=== PATIENT | female | born 1965 | race Caucasian/White ===

== ENCOUNTER 2020-06-01 09:57 | Outpatient (REF) | payer OTHER, SELFPAY | END 2020-06-01 09:58 | disposition home or self-care (01) | LOC: HO.LAB 09:57 | PROVIDERS: Visit Provider Internal Medicine | DX: Z20.828 Contact with and (suspected) exposure to other viral communicable diseases (principal) | CPT/HCPCS: C9803; U0003 ==

== ENCOUNTER 2021-03-07 07:13 | Outpatient (REF) | payer OTHER, SELFPAY ==
[2021-03-07 11:16] LABS: MANUAL DIFF FLAG NO
[2021-03-07 11:29] LABS: Basophils Percent Auto 0.7 % (0-2); Eosinophils Absolute Auto 0.3 X10*3/uL (0.0-0.4); Hematocrit 41.2 % (37-47); Hemoglobin 13.7 g/dl (12.0-16.0); Imm Gran Abs Auto 0.01 X10*3/uL (0.00-0.03); Imm Gran Pct Auto 0.2 % (0.0-0.4); Lymphocytes Absolute Auto 2.5 X10*3/uL (1.2-4.9); Lymphocytes Percent Auto 43.3 % (20-40); Mean Corpuscular HGB Conc 33.3 g/dl (31.0-35.0); Mean Corpuscular Hemoglobin 30.5 pg (27.0-33.0); Mean Corpuscular Volume 91.8 fL (80-98); Mean Platelet Volume 10.4 fL (9.4-12.3); Monocytes Absolute Auto 0.5 X10*3/uL (0.1-1.2); Monocytes Percent Auto 8.9 % (2-11); Neutrophils Absolute Auto 2.3 X10*3/uL (2.0-8.3); Neutrophils Percent Auto 40.9 % (45-73); Platelet Count 286 X10*3/uL (160-400); Red Blood Count 4.49 X10*6/uL (4.20-5.50); Red Cell Distribution Width 12.5 % (11.0-16.0); White Blood Count 5.7 X10*3/uL (4.8-10.8)
[2021-03-07 12:19] LABS: Thyroid Stimulating Hormone 1.46 uIU/mL (0.32-4.0); Vitamin D 25-OH Total 20.7 ng/mL (>30)
[2021-03-07 12:48] LABS: Alanine Aminotransferase 11 U/L (0-31); Alkaline Phosphatase 82 U/L (39-117); Anion Gap 9 (12-20); Aspartate Amino Transferase 11 U/L (5-31); Bilirubin Total 0.8 mg/dL (0.0-1.0); Blood Urea Nitrogen 11 mg/dL (9-16); Calcium 9.2 mg/dL (8.4-10.2); Carbon Dioxide 27 mmol/L (22-29); Chloride 108 mmol/L (96-108); Cholesterol 189 mg/dL; Estimated Glomerular Filt Rate > 60; Glucose Fasting 95 mg/dL (60-99); HDL Cholesterol 73 mg/dL; LDL Cholesterol Calculated 109 mg/dl; Potassium 4.4 mmol/L (3.3-5.1); Sodium 140 mmol/L (135-145); Total Protein 6.2 g/dL (6.5-8.0); Triglycerides 39 mg/dL
[2021-03-08 18:37] LABS: Follicle Stimulating Hormone 90.8 mIU/mL; Lutenizing Hormone 33.2 mIU/mL
== END 2021-03-07 07:14 | disposition home or self-care (01) ==
LOC: HO.WFDLDS 07:13
PROVIDERS: PCP Internal Medicine; Visit Provider Internal Medicine
DX: Z00.00 Encounter for general adult medical examination without abnormal findings (principal); N91.2 Amenorrhea, unspecified
CPT/HCPCS: 36415; 80053; 80061; 82306; 83001; 83002; 84443; 85025

== ENCOUNTER 2021-05-06 11:46 | Outpatient (REF) | payer OTHER, SELFPAY ==
[2021-05-06 15:04] LABS: Influenza A PCR NEGATIVE (Negative); Influenza B PCR NEGATIVE (Negative); Resp Syncy Virus RNA Qual PCR NEGATIVE (Negative); SARS COV2 PCR INHOUSE NEGATIVE (Negative)
== END 2021-05-06 11:47 | disposition home or self-care (01) ==
LOC: HO.LAB 11:46
PROVIDERS: Visit Provider Family Medicine
DX: Z20.822 Contact with and (suspected) exposure to COVID-19 (principal); J02.9 Acute pharyngitis, unspecified
CPT/HCPCS: 0241U; 36415

== ENCOUNTER 2021-08-05 07:34 | Outpatient (REF) | payer OTHER, SELFPAY ==
--- NOTE | ~2021-08-05 | XR_ITS ---
EXAMINATION: XR WRIST, LEFT CLINICAL INFORMATION: Pain in left wrist. COMPARISON: None. TECHNIQUE: PA, lateral, and oblique views of the left wrist. FINDINGS: Hypertrophic changes distal radius. No acute fracture visualized. There is posterolateral displacement in relation to radius and ulnocarpal joint space. There is negative ulnar variance. There is mild dorsal wrist soft tissue swelling. XR/XR wrist LT min 3V IMPRESSION: Mild dorsal subluxation of distal ulnar in relation to ulnocarpal joint space. No fracture seen. There is mild hypertrophic changes or deformity of distal radius likely old injury.
== END 2021-08-05 07:35 | disposition home or self-care (01) ==
LOC: HO.LAB 07:34
PROVIDERS: PCP Internal Medicine; Visit Provider Internal Medicine
DX: M25.532 Pain in left wrist (principal)
CPT/HCPCS: 73110; 81162

== ENCOUNTER 2025-03-22 06:32 | Outpatient (REF) | payer BC, SELFPAY ==
--- OUTSIDE RECORDS SUMMARY | 2025-03-22 06:38 | XMS_ITS | Data Portability ---
Author Organization [facility], Telehealth Patient Home Address [address] [place] [address] Assessment No assessment recorded. Plan of Treatment Reminders Order Date Submit Date Provider Last Modified By Organization Details Last Modified Time Details Appointments ANNUAL EXAM 2025 03:45P M DR BATES Not available Not available Not available Lab CMP, serum or plasma 2024 025 [facility], [address] [place] [address], [id number], 03/02/2025 16:25:40 CBC w/ auto diff 2024 025 [facility], [address] [place] [address], [place], [address], 03/02/2025 16:25:40 lipid panel, blood 2024 025 [facility], [address] [place] [address], [id number], 03/02/2025 16:25:40 hemoglobi n A1c, QN, blood 2024 025 [facility], [address] [place] [address], [address], 03/02/2025 16:25:40 Referral None recorded. Procedures None recorded. Surgeries None recorded. Imaging CT, abdomen + pelvis, w/o contrast 2023 024 [email or web address] 10 [facility], [address] [place] [address] [place], [address], 11/26/2023 09:48:25 Medication Orders alendrona te 35 mg tablet 2024 025 [facility] [place], [address] [place], [address], 03/03/2025 12:09:17 erythromy caron 5 mg/gram (0.5 %) eye ointment 2024 025 [facility] [place], [address] [place], [address], 03/03/2025 12:09:17 citalopra m 10 mg tablet 2024 025 [facility] [place], [address] [place], [address], 03/03/2025 12:09:16 Patient TargetsNo targets recorded. Patient InstructionsNo instructions recorded. Reason for Referral None Reported. Results Created Date Observation Date Name Description Value Unit Range Abnormal Flag Note LastModifiedBy Organization Detail LastModifiedTime 11/30/19 24 11/29/2023 CT, abdom en + pelvi s, w/o contr ast No observ ation record ed. [facility] - Radiology [address] [place], [address], 11/30/2023 15:26:11 Result Notes None recorded. Problems Name Problem SNOMED Code Status Onset Date Resolution Date Notes Provider Name and Address Organization Details Recorded Time Allergic rhinitis 67411468 Active 2020 Not Available [facility] 3 17:25:12 Posterio r calcanea l exostosi s 626581185 Active 2020 [employer] Not Available [facility] 3 17:25:12 Menopaus al flushing 714481689 Active 2020 Not Available [facility] 3 17:25:12 Sprain of lateral collater al ligament of knee 63894049 Active 2020 Not Available [facility] 3 17:25:12 Inflamma tion of cervix 28066232 Active 2020 Not Available [facility] 3 17:25:12 Anxiety 87204699 Active 2020 Not Available [facility] 3 17:25:12 Lipoma of lower leg 944792912 Active 2021 Not Available [facility] 3 17:25:12 Overweig ht 733897404 Active 2021 Not Available [facility] 3 17:25:12 Mammogra phic mass of left breast 81023136292 048911 Active 2022 Not Available [facility] 3 17:25:12 Pain of left shoulder joint 07564565029 217031 Active 2022 HILDA AGUILAR [address] [place], [address], [facility] 3 15:52:47 Osteopor osis 02225377 Active 2022 HILDA AGUILAR [address] [place], [address], [facility] 3 16:09:52 Left flank pain 900534471 Active 2023 HILDA AGUILAR [address] [place], [address], [facility] 4 15:48:46 Kidney stone 04813185 Active 2023 HILDA AGUILAR [address] [place], [address], [facility] 4 15:26:23 Constipa tion 75658775 Active 2023 HILDA AGULIAR [address] [place], [address], [facility] 4 16:33:55 Abdomina l pain 29694947 Active 2023 HILDA AGUILAR [address] [facility] [place], [address], [facility] 4 16:36:57 Tight chest 03136945 Active 2024 HILDA AGUILAR [address] [place], [address], [facility] 5 15:26:45 Hordeolu m externum of upper eyelid of left eye 56092638106 9102 Active 2024 HILDA AGUILAR [address] [place], [address], [facility] 5 16:07:53 Mild major depressi on, single episode 58977132 Active 2024 HILDA AGUILAR [address] [place], [address], [facility] 5 16:09:59 Problem Notes None recorded. Procedures Surgical History Date Name Laterality Status Provider Name and Address Organization Details Recorded Time Breast Biopsy completed Dana Ernst [facility] 01/22/2021 08:22:44 cryosurgery of lesion of cervix completed Dana [facility] 01/22/2021 08:22:55 biopsy of skin completed Dana [facility] 01/22/2021 08:23:16 Imaging Results None recorded. Procedure Notes None recorded. Medical Equipment None Reported. Allergies Allergen ID Allergen Name Allergen Category Reaction Reaction Severity Criticality Documentation Date Start Date Code Code System Note Provider Name and Address Organization Details Recorded Time 4655 Bactrim medicatio n Not available Not available Not available 01/22/2021 67502 9 RxNorm Dana angulo [facility] 08:18:12 4656 Substance with sulfonami de structure and antibacte rial mechanism of action (substanc e) medicatio n Not available Not available Not available 01/22/2021 01720 8003 SNOMED Dana angulo [facility] 08:18:18 4657 bee pollen environme nt,medica tion Not available Not available Not available 01/22/2021 97258 [address] - [facility] 1 08:18:28 Medications Name Sig Start Date Stop Date Status Note LastModified by Organization Details LastModified Time amoxicilli n 500 mg capsule TAKE 1 CAPSULE by mouth 3 TIMES DAILY UNTIL GONE. 04/14 completed Not Available Not Available Not Available triazolam 0.25 mg tablet TAKE 1 tablet by mouth 1 HOUR BEFORE APPOINTM ENT 04/14 completed Not Available Not Available Not Available azithromyc in 250 mg tablet TAKE 2 TABLETS BY MOUTH TODAY THEN TAKE 1 TABLET DAILY FOR THE NEXT 4 DAYS 09/09 completed Not Available Not Available Not Available ibuprofen 800 mg tablet TAKE 1 TABLET by mouth EVERY 6 HOURS NEEDED. WITH food 04/14 completed Not Available Not Available Not Available citalopram 10 mg tablet TAKE 1 TABLET BY MOUTH ONCE every DAY active Not Available Not Available No t Available alendronat e 35 mg tablet TAKE 1 TABLET BY MOUTH ONCE A WEEK WITH 6-8OZ OF WATER AT LEAST 30 MIN BEFORE FIRST FOOD OR ANY MED DO NOT LIE DOWN FOR 30 MIN active Not Available Not Available No t Available lorazepam 0.5 mg tablet TAKE 1 TABLET BY MOUTH THREE TIMES DAILY NEEDED FOR 30 DAYS active if needed Not Available Not Available Not Available erythromyc in 5 mg/gram (0.5 %) eye ointment APPLY 1 CM RIBBON INTO THE LOWER CONJUNCT IVAL SAC(S) IN THE AFFECTED EYE(S) BY OPHTHALM IC ROUTE 3 TIMES PER DAY active Not Available Not Available No t Available chlorhexid ine gluconate 0.12 % mouthwash RINSE MOUTH WITH 15ML (1 CAPFUL) FOR 30 SECONDS AM AND PM AFTER TOOTHBRU SHING. EXPECTOR ATE AFTER RINSING, DO NOT SWALLOW 04/14 completed Not Available Not Available Not Available Virtussin AC 10 mg-100 mg/5 mL oral liquid Take 10 mL every 4 hours by oral route for 7 days. 09/09 completed Not Available Not Available Not Available Vitals Date Recorded Body height Body mass index (BMI) Body weight Heart rate Oxygen saturation Oxygen saturation in Arterial blood by Pulse oximetry Systolic And Diastolic Provider Name and Address Organization Details Last Updated DateTime 5 139.7 cm 35.5 kg/m2 21746.2 g 63 /min 97 % 97 % 118/74 mm[Hg] Rafaela Vogel [facility] 5 09:26:21 Date Recorded Body height Body mass index (BMI) Body weight Heart rate Oxygen saturation Oxygen saturation in Arterial blood by Pulse oximetry Systolic And Diastolic Provider Name and Address Organization Details Last Updated DateTime 4 139.7 cm 35.1 kg/m2 63640.4 5 g 67 /min 97 % 97 % 128/70 mm[Hg] HILDA AGUILAR [address] [place], [address] [place] [address] Internal [facility] 4 15:21:14 Date Recorded Body height Body mass index (BMI) Body weight Heart rate Oxygen saturation Oxygen saturation in Arterial blood by Pulse oximetry Systolic And Diastolic Provider Name and Address Organization Details Last Updated DateTime 5 139.7 cm 34.9 kg/m2 68400.8 6 g 60 /min 98 % 98 % 120/70 mm[Hg] Jeane Shrestha [facility] 5 15:52:54 Date Recorded Body height Body mass index (BMI) Body weight Heart rate Oxygen saturation Oxygen saturation in Arterial blood by Pulse oximetry Systolic And Diastolic Provider Name and Address Organization Details Last Updated DateTime 4 139.7 cm 35.5 kg/m2 59890.5 5 g 70 /min 97 % 97 % 116/80 mm[Hg] Rafaela Vogel [facility] 4 16:19:24 Date Recorded Body height Body mass index (BMI) Body weight Heart rate Oxygen saturation Oxygen saturation in Arterial blood by Pulse oximetry Systolic And Diastolic Provider Name and Address Organization Details Last Updated DateTime 4 139.7 cm 35.3 kg/m2 06049.0 4 g 70 /min 97 % 97 % 110/72 mm[Hg] Jeane Shrestha [facility] 4 10:09:35 Social History Question Answer Notes LastModified by Organizat ion Details LastModified Time Tobacco Smoking Status [facility] 08:16:35 What Is Your Level Of Caffeine Consumption? None Information not available 01/22/2021 What Was The Date Of Your Most Recent Tobacco Screening? 03/02/2025 [email or web address] Information not available 03/02/2025 Sex: Unknown Functional Status Question Answer Note LastModified by Organizat ion Details LastModified Time Do you use any illicit or recreational drugs? No [email or web address] Information not available 03/26/2023 Do you or have you ever used any other forms of tobacco or nicotine? No [email or web address] Information not available 03/26/2023 What is your level of alcohol consumption? Occasional Information not available 01/22/2021 Mental Status None recorded. Family History Relationship Description Onset Age of this Age Resolved Age Notes LastModified by Organization Details LastModified Time Father Chronic obstructive pulmonary disease [email or web address] Not available 2020 08:23:28 Father Congestive heart failure [email or web address] Not available 2024 15:46:46 Father Pulmonary emphysema [email or web address] Not available 2024 15:46:46 Father Heart disease [email or web address] Not available 2020 10:31:53 Mother Malignant neoplasm of female breast [email or web address] Not available 2024 15:46:46 Mother Malignant neoplasm of uterus [email or web address] Not available 2024 15:46:46 Mother Heart disease [email or web address] Not available 2020 10:31:53 Maternal Grandfather Alcoholism [email or web address] Not available 15:46:46 Paternal Grandfather Alcoholism [email or web address] Not available 15:46:46 Brother Alcoholism [email or web address] Not availa ble 03/02/2025 15:46:46 Maternal Grandmother Malignant neoplastic disease [email or web address] Not available 2024 15:46:46 Paternal Grandmother Malignant neoplastic disease [email or web address] Not available 2024 15:46:46 Medical History No medical history recorded. Gynecological HistoryNo gynecological history recorded. Obstetrics History GPAL:G 0 P 0 0 0 0 Immunizations Vaccine Type Date Status Note Provider Nam e and Address Organization Details Recorded Time Influenza, split virus, quadrivalent, preservative completed Regino Bates, DO [address] [place] [address], [place], [address], [facility] 04/14/2021 15:16:58 influenza, unspecified formulation 2 completed HILDA AGUILAR [address] [place], [address], [facility] 06/17/2022 16:17:12 Past Encounters Encounter ID Performer Location Encounter Start Date Encounter Closed Date Diagnosis/Indication Diagnosis SNOMED-CT Code Diagnosis ICD10 Code Diagnosis IMO Codes Diagnosis Note [id number] Regino Bates [facility] [address] [place] [address] 01/24/2021 15:21:57 01/24/2021 16:09:37 Amenorrhea 24077312 N91.2 Anxiety 43665621 F41.9 Adult heal th examination 473413036 Z00.00 [id number] Regino Bates [facility] [address] [address] 04/14/2021 14:55:08 04/14/2021 15:53:07 Active or passive immunization 622195801 Z23 utd Adult heal th examination 083325928 Z00.00 excellent physical shape and is doing wonderful with excellent lab Family his tory of breast cancer 004188653 Z80.3 mother with breast ca hxand sister did testing which was negative External hordeolum 96773 08 H00.019 [id number] Regino Bates [facility] [address] [place] [address] 05/27/2021 10:26:13 05/27/2021 16:19:42 Cough 31403667 R05.1 will start on cough syrup and abx and fu with XR [id number] Regino Bates [facility] [address] [place] [address] 08/01/2021 08:39:10 08/05/2021 08:14:00 Pain of left wrist 0570771271 95161 M25.532 will start with an XRcan use a brace at night [id number] Regino Bates [facility] [address] [place] [address] 06/17/2022 16:14:06 06/17/2022 16:42:48 Lipoma of lower leg 483985772 D17.24 will fu with patient after USwill mariano general surgeon referralwo zabrina prefer [facility] Overweight 237036172 E66 .3 will [place] [id number] Regino Bates [facility] [address] [facility],[place] [address] 03/26/2023 15:39:24 03/26/2023 16:10:37 Pain of left shoulder joint 3346896804 9609588 M25.512 will set up with XRs Anxiety 35468321 F41.1 stable Mammograph ic mass of left breast 1716151721 5198231 R92.8 has another fu in 6 mos Osteoporosis 88898769 M8 1.0 stable [id number] Regino Bates [facility] [address] [facility] [address] 11/22/2023 15:14:25 11/23/2023 08:21:08 Left flank pain 044249864 R10.[address] to examine area of concern, concern being kidney stone vs colitis [id number] Regino Bates [facility] [address] [facility],[place] [address] 05/09/2024 16:10:00 05/09/2024 16:48:47 Constipation 81996441 K59.01 possible reaction to constipati on Abdominal pain 15790314 R10.32 will fu in two weeks [id number] Regino Bates [facility] [address] [facility],[place] [address] 06/07/2024 09:59:46 06/07/2024 10:35:30 Abdominal pain 82177654 R10.32 doing better, less often, feels less bloated and less crampingre commended continuing miralax, following back up in a monthif the pain is still there, we can repeat imaging, with less stool burden we would be able to get a better picture Constipation 96216182 K5 9.01 much improved [id number] Regino Bates DO [facility] [address] [facility] [address],[place] [address] [place] [place] [address] 07/11/2024 09:16:34 07/11/2024 10:11:07 Constipation 55317882 K59.01 much improvedpa in is lessening [id number] Regino Bates [facility] [address] [facility] [address] [address],[place] [address] 03/02/2025 15:45:54 03/02/2025 16:30:23 Hordeolum externum of upper eyelid of left eye 0517301815 53511 H00.437 6998149 will set up with topical General ex amination of patient 749592780 Z00.00 875810 BP is excellent Osteoporosis 87688302 M8 1.0 stable Mild major depression, single episode 02244009 F32.0 6492544868 trial low dose Health Concerns Section Related Observation LastModified by Organization Detai ls LastModified Time None Recorded Concern Status LastModified by Organization Details LastModified Time None Recorded Advance Directives Directive None Recorded Payers Insurance Date Sequence Insurance Name Policy Number Policy Stout Covered Member ID Stout Member ID Guarantor Name 12/27/2024 1 [facility] [id number] Marianne Dalton [id number] Marianne Dalton 12/27/2024 1 [facility] Marianne Pires [id number] Marianne Dalton 02/27/2025 1 [facility] [id number] Marianne Dalton [id number] Marianne Dalton Notes Date Note Type Note Provider Name a nd Address Organization Details Recorded Time 4 text/html ROS as noted in the HPI c/o left side pain left side pain, along the left flankstarted about two months agono trauma or injury no trigger she knows aboutthe patient reports that the pain is not reproducible with palpationdoesn't notice what causesno specific positionsnoted it prior with sitting and laying but not always the same time some days she is fine, some days she has several episodes of pain sometimes it's from the left flank and upper back HILDA AGUILAR [address] [place], [address], [facility] 11/22/2023 15:52:38 4 text/html ROS as noted in the HPI c/o abdominal painstill having the fluttering in her LLQ, couple seconds, no specific trigger besides movement, not reproducible when palpatedCT found kidney stone a few months ago which urology has since seen her for and she is back to baseline without stone routine colonoscopy was normalconstipation: only other abnormality is the diffuse constipation throughout the colon despite pt informing us she had had a bowel movement prior to the image appt possible discomfort related to constipation, slow transit, no emptying her colon completely recommended trial of miralax for 2 weeks to see if she notices a difference in the discomfort otherwise possible repeat colonoscopy vs closer evaluation to her muscles/spine HILDA AGUILAR [address] [place], [address], [facility] 05/09/2024 16:48:33 4 text/html ROS as noted in the HPI 2 weeks f/u the patient is doing better with the bowel movements everyday definitely more regularly, having the pain in her side less often and if it happens stops much quicker the patient reports that she did go see her LABORATORY IMMUNOLOGIST on Wednesdaythe patient reports that her pelvic exam was negative which is good news will continue on the miralax and will redo the imaging in a few months now that she is more cleaned out patient agreeswill follow up in a month HILDA AGUILAR [address] [place], [address], [facility] 06/07/2024 10:22:10 5 text/html ROS as noted in the HPI f/u 1 mos the patient tolerates the miralax is working, the pain is less intense and happens less often the patient reports that she has been pretty consistent with the miralaxthe patient has made some dietary changes which have been helpingwill continue on the current plan and f/u in a few months the patient reports that she is trying to increase her water intake HILDA AGUILAR [address] [place], [address], [facility] 07/11/2024 09:36:23 5 text/html Annual WellnessReported by PatientSocial/Behavio ral HistoryFor diet and nutrition, patient reportshealthy diet,discussed vitamin and supplement use,discussed portion control,discussed maintaining calcium balance, anddiscussed diet improvement. For fracture risk, patient reportsno history of fractures,no recent explained fracture,no sudden unexplained fractures, andno previous musculoskeletal injuries. For physical activity, patient reportsexercises on a regular basis,recent increase in physical activity, andgood physical condition. For additional lifestyle factors, patient reportsno tobacco use,no alcohol intake, andstopped drinking alcohol.Mental Status:For depression risk, patient reportsnever feels sad, empty, or tearful,no loss of interest in activities,no significant changes in weight,no sleep disturbances or insomnia,no agitation,no loss of energy,no feelings of worthlessness or guilt,no thoughts of suicide,no history of depression, andno history of mood disorders.Functional AbilityFor hearing, patient reportsno loss of hearing. For vision, patient reportsno vision problems.ROS as noted in the HPI HILDA AGUILAR [address] [place], [address], [facility] 03/02/2025 16:28:20 OBGyn Episode No OBEpisode recorded.
[2025-03-22 06:44] LABS: MANUAL DIFF FLAG NO
[2025-03-22 07:23] LABS: Hematocrit 44.2 % (37.0-47.0); Hemoglobin 15.2 g/dl (12.0-16.0); Imm Gran Abs Auto 0.03 X10*3/uL (0.00-0.03); Imm Gran Pct Auto 0.5 % (0.0-0.4); Lymphocytes Absolute Auto 2.2 X10*3/uL (1.2-4.9); Mean Corpuscular HGB Conc 34.4 g/dl (31.0-35.0); Mean Corpuscular Hemoglobin 31.0 pg (27.0-33.0); Mean Corpuscular Volume 90.2 fL (80.0-98.0); NRBC Abs Auto 0.000 X10*3/uL (0.0-0.012); NRBC Pct Auto 0.0 /100WBC (0.0-0.2); Platelet Count 308 X10*3/uL (160-400); Red Blood Count 4.90 X10*6/uL (4.20-5.50); White Blood Count 6.4 X10*3/uL (4.8-10.8)
[2025-03-22 07:58] LABS: Alanine Aminotransferase 18 U/L (0-31); Albumin Level 4.3 g/dL (3.5-5.0); Alkaline Phosphatase 78 U/L (39-117); Anion Gap 9 (12-20); Aspartate Amino Transferase 18 U/L (5-31); Blood Urea Nitrogen 22 mg/dL (9-16); Calcium 9.6 mg/dL (8.4-10.2); Carbon Dioxide 28 mmol/L (22-29); Chloride 105 mmol/L (96-108); Cholesterol 225 mg/dL (<200); Estimated Glomerular Filt Rate > 60; HDL Cholesterol 77 mg/dL (>40); Potassium 4.2 mmol/L (3.3-5.1); Sodium 138 mmol/L (135-145); Total Protein 6.9 g/dL (6.5-8.0); Triglycerides 47 mg/dL (<150)
== END 2025-03-22 06:33 | disposition home or self-care (01) ==
LOC: HO.LAB 06:32
PROVIDERS: PCP Internal Medicine; Visit Provider Physician Assistant
DX: Z00.00 Encounter for general adult medical examination without abnormal findings (principal); Z13.6 Encounter for screening for cardiovascular disorders; Z13.1 Encounter for screening for diabetes mellitus
CPT/HCPCS: 36415; 80053; 80061; 83036; 85025